=== PATIENT | female | born 1965 | race African-American/Black ===

== ENCOUNTER 2017-03-17 08:41 | Emergency (ER) | payer BC, OTHER ==
[~2017-03-17] VITALS: Ht 157.5 cm; Wt 65.8 kg
[2017-03-17 08:44] VITALS: BP 137/91
[2017-03-17] MEDS ORDERED: PAXIL 20 MG TAB20 MG PO (08:51)
[2017-03-17] MEDS ORDERED: NORVASC5 MG PO (08:51)
[2017-03-17] MEDS ORDERED: BACTRIM DS TAB1 EACH PO (08:51)
[2017-03-17] MEDS ORDERED: ULTRAM 50MG TAB50 MG PO (09:17)
[2017-03-17] MEDS ORDERED: IBUPROFEN 600600 M1 PO (09:17)
== END 2017-03-17 09:29 | disposition home or self-care (01) ==
LOC: ER 08:41
DX: L02.01 Cutaneous abscess of face (principal); I10 Essential (primary) hypertension; F32.9 Major depressive disorder, single episode, unspecified; Z88.0 Allergy status to penicillin